=== PATIENT | female | born 1965 | race Caucasian/White ===

== ENCOUNTER 2019-01-19 07:55 | Emergency (ER) | payer OTHER ==
[~2019-01-19] VITALS: Ht 256.5 cm; Wt 65.8 kg
--- NOTE | ~2019-01-19 | EMS ---
[facility] [address] [place] [address] EMS Patient Care Report Name: GILL METCALF Room #: REG ROSA Harper#: [id number] Admission: 01/19/19 Attend Phys: Discharge: Date of : 61 Report #: [id number] THIS REPORT FOR: //name// Report Transmitted: 01/19/2019 07:40 EMS Care Summary [place], [place]/[facility] Incident [id number] @ 01/19/2019 07:20 Incident [address] [place], [place] [id number] Patient GILL METCALF Female, 53 Years 1965 Patient Address [address] [place] [address] Patient History Schizophrenia,Depression,Anxiety, Patient Allergies Sulfa, Patient Medications Trazodone, Chief Complaint HYPERVENTILATING Disposition Transported No Lights/[place] Dispatch Reason Breathing Problem Transported To [facility] Narrative UPON ARRIVAL PT LATERAL ON COUCH, PT HYPERVENTIALTING. EX- ON SCENE STATES SHE SAID SHE WAS SOB AND HEART HURTS. HE DOESN'T THINK SHE'S BEEN TAKING HER MEDS FOR DEPRESSION/ANXIETY AND CAN "GET SCHIZOPHRENIC WHEN SHE DOESN'T." PT C/O HANDS CRAMPING UP. ATTEMPT TO GET PT TO SLOW BREATHING WITH LITTLE [facility] [address] [place] [address] EMS Patient Care Report Name: GILL METCALF Room #: REG ROSA Harper#: [id number] Admission: 01/19/19 Attend Phys: Discharge: Date of : 61 Report #: [id number] SUCCESS. PT TRANSPORTED TO [facility] Initial Vitals @07:44P: 85,R: 39,CO: 2,SpO2: 98, @07:50P: 78,R: 34,CO: 3,SpO2: 99, @07:48P: 72,R: 31,SpO2: 99, @07:46P: 71,R: 38,SpO2: 98, @07:47P: 76,R: 35,SpO2: 98, @07:41P: 95,R: 17,CO: 3,SpO2: 98,[place] Suspected: false @07:39P: 86,R: 37,CO: 2,SpO2: 99, @07:42P: 85,R: 43,SpO2: 98, @07:50P: 71,R: 40,BP: 109/74,GCS: 15,SpO2: 97,Revised Trauma: 11, @07:45P: 77,R: 29,BP: 112/71,SpO2: 99, @07:35P: 105,R: 40,BP: 116/76,Pain: 4/10,GCS: 15,CO: 0,SpO2: 100,Revised Trauma: 11, @07:41P: 83,R: 38,SpO2: 98, Assessments @07:35MENTAL:Person Oriented,Time Oriented,Place Oriented,Event Oriented,SKIN:HEENT:LUNG SOUNDS:ABDOMEN:PELVIS//GI:EXTREMITIES:Right Arm: Abnormal Sensation,Left Arm: Abnormal Sensation,Left Leg: No Abnormalities,Right Leg: No Abnormalities,PULSE:Radial: 2+ Normal,NEURO:No Abnormalities, Impression Chest Pain / Discomfort Procedures @07:4112-Lead ECGResponse: UnchangedSucceeded@07:35ALS AssessmentResponse: UnchangedSucceeded Timeline 07:18,Call Received 07:18,Dispatch Notified 07:20,Dispatched 07:21,En Route 07:32,On Scene 07:33,At Patient 07:35,ALS Assessment,Response: UnchangedSucceeded, 07:35,BP: 116/76 M,PULSE: 105,RR: 40 R,SPO2: 100 Ox,ETCO2: ,BG: ,PAIN: 4,GCS: 15, 07:39,BP: / M,PULSE: 86,RR: 37 R,SPO2: 99 Ox,ETCO2: ,BG: ,PAIN: ,GCS: , 07:41,12-Lead ECG,Response: UnchangedSucceeded, 07:41,BP: / M,PULSE: 95,RR: 17 R,SPO2: 98 Ox,ETCO2: ,BG: ,PAIN: ,GCS: , 07:41,BP: / M,PULSE: 83,RR: 38 R,SPO2: 98 Ox,ETCO2: ,BG: ,PAIN: ,GCS: , 07:42,Depart Scene [address] [address] EMS Patient Care Report Name: GILL METCALF Room #: REG ROSA Harper#: [id number] Admission: 01/19/19 Attend Phys: Discharge: Date of : 61 Report #: [id number] 07:42,BP: / M,PULSE: 85,RR: 43 R,SPO2: 98 Ox,ETCO2: ,BG: ,PAIN: ,GCS: , 07:44,BP: / M,PULSE: 85,RR: 39 R,SPO2: 98 Ox,ETCO2: ,BG: ,PAIN: ,GCS: , 07:45,BP: 112/71 M,PULSE: 77,RR: 29 R,SPO2: 99 Ox,ETCO2: ,BG: ,PAIN: ,GCS: , 07:46,BP: / M,PULSE: 71,RR: 38 R,SPO2: 98 Ox,ETCO2: ,BG: ,PAIN: ,GCS: , 07:47,BP: / M,PULSE: 76,RR: 35 R,SPO2: 98 Ox,ETCO2: ,BG: ,PAIN: ,GCS: , 07:48,BP: / M,PULSE: 72,RR: 31 R,SPO2: 99 Ox,ETCO2: ,BG: ,PAIN: ,GCS: , 07:50,BP: / M,PULSE: 78,RR: 34 R,SPO2: 99 Ox,ETCO2: ,BG: ,PAIN: ,GCS: , 07:50,BP: 109/74 M,PULSE: 71,RR: 40 R,SPO2: 97 Ox,ETCO2: ,BG: ,PAIN: ,GCS: 15, 07:52,At Destination 08:04,Call Closed Disclaimer v1.1 Copyright 2019 [employer] This EMS Care Summary contains data elements from the applicable legal record (which may be displayed differently). It is designed to provide pertinent information for the following purposes: continuity of care, clinical quality, and state data reporting. The complete legal record is available to ED staff and administrators of the receiving hospital in [employer] Patient Tracker. All data is provided "as is."
[2019-01-19 08:30] LABS: ABSOLUTE NEUTROPHILS 4.7 thou/uL (1.4-8.2); BASOPHILS 0.9 % (0.0-2.0); EOSINOPHILS 0.9 % (0.0-3.0); HEMATOCRIT 42.8 % (37.0-47.0); HEMOGLOBIN 14.4 gm/dL (12.0-15.0); LYMPHOCYTES 18.9 % (24.0-44.0); MCH 32.4 pg (26.0-34.0); MCHC 33.6 g/dL (28.0-37.0); MCV 96.6 fL (80.0-100.0); MONOCYTES 5.4 % (1.0-8.0); PLATELET COUNT 236 thou/uL (150-400); POLYS 73.9 % (36.0-66.0); RBC 4.44 mil/uL (4.20-5.00); RDW 13.3 % (10.5-14.5); WBC 6.4 thou/uL (4.0-11.0)
[2019-01-19] MEDS ORDERED: TRAZODONE HCL50 MG PO (08:42)
[2019-01-19] MEDS ORDERED: DULOXETINE HCL60 MG PO (08:43)
[2019-01-19] MEDS ORDERED: ALPRAZOLAM1 MG PO (08:44)
[2019-01-19] MEDS ORDERED: ZOLPIDEM TARTRA10 MG PO (08:44)
[2019-01-19 08:51] LABS: ALBUMIN 3.8 g/dL (3.4-5.0); ANION GAP 17 mmol/L (7-16); BUN 10 mg/dL (7-18); CALCIUM 9.2 mg/dL (8.5-10.1); CHLORIDE 103 mmol/L (98-107); CO2 23 mmol/L (21-32); CREATININE 0.8 mg/dL (0.6-1.0); GLUCOSE 82 mg/dL (74-106); MAGNESIUM 1.9 mg/dL (1.8-2.4); SGOT 19 U/L (15-37); SGPT 16 U/L (30-65); SODIUM 143 mmol/L (136-145); TOTAL PROTEIN 6.6 g/dL (6.4-8.2); TROPONIN-I <0.06 ng/mL (<0.06)
[2019-01-19 08:53] LABS: POTASSIUM 2.7 mmol/L (3.5-5.1)
[2019-01-19 09:30] VITALS: BP 127/72
--- NOTE | 2019-01-20 11:38 | EKG ---
[place] [address] [facility] [id number] [address] ELECTROCARDIOGRAM REPORT Name: GILL METCALF Room #: [facility] ROSA Harper#: [id number] Admission: 01/19/19 Attend Phys: Discharge: 01/19/19 Date of : 61 Report #: [id number] THIS REPORT FOR: //name// [facility] ED Test Date: 2019-01-19 Test Time: 07:59:23 Pat Name: GILL METCALF Department: Room: Gender: F Asl Interpreter: jngum : 1965 Requested By: Maldonado Hess Order Number: [id number] MD: Addison Arreola Measurements Intervals [place] Rate: 69 P: 35 HI: 193 QRS: 65 QRSD: 126 T: 73 QT: 467 QTc: 501 Interpretive Statements Sinus rhythm Probable left atrial enlargement Nonspecific ST segment abnormalities No previous ECG available for comparison Electronically Signed On 01-20-2019 11:37:54 CDT by Addison Arreola [email or web address] <ELECTRONICALLY SIGNED> By: Addison Arreola MD 01/20/19 [id number] Addison Arreola MD /EPI
== END 2019-01-19 09:32 | disposition home or self-care (01) ==
LOC: ER 07:55
PROVIDERS: Emergency Medicine
DX: R07.89 Other chest pain (principal); F32.9 Major depressive disorder, single episode, unspecified; F17.210 Nicotine dependence, cigarettes, uncomplicated; Z88.2 Allergy status to sulfonamides